=== PATIENT | female | born 2000 | race Caucasian/White ===

== ENCOUNTER 2021-03-15 11:01 | Emergency (ER) | payer OTHER ==
[~2021-03-15] VITALS: Ht 162.6 cm; Wt 95.3 kg
[2021-03-15 11:05] VITALS: BP 114/70
[2021-03-15] MEDS ORDERED: CEFD300C3 PO (11:27)
[2021-03-15] MEDS ORDERED: DIPH25TA53 PO (11:27)
[2021-03-15] MEDS ORDERED: PRED20TA5 PO (11:27)
[2021-03-15] MEDS ORDERED: NAPR-54 PO (11:28)
[2021-03-15 11:33] VITALS: BP 114/70
== END 2021-03-15 11:33 | disposition home or self-care (01) ==
LOC: MED 11:01
DX: J03.90 Acute tonsillitis, unspecified (principal); K11.20 Sialoadenitis, unspecified; Z88.0 Allergy status to penicillin; Z88.2 Allergy status to sulfonamides
CPT/HCPCS: 99283

== ENCOUNTER 2022-02-18 15:13 | Emergency (ER) | payer MEDICAID, OTHER ==
[~2022-02-18] VITALS: Ht 162.6 cm; Wt 95.3 kg
[~2022-02-18 15:13] MED LIST: CEFD300C3 PO; DIPH25TA53 PO; NAPR-54 PO; PRED20TA5 PO
[2022-02-18 15:22] VITALS: BP 120/65
--- NOTE | 2022-02-18 15:32 | NUR ---
21/F C/O BILATERAL EAR PAIN, STATES SHE WAS SEEN FOR LEFT EAR PAIN YESTERDAY AND GIVEN RX OF ABX. STATES TODAY SHE WOKE UP WITH BILATERAL PAIN AND STATING "I CANT HEAR." DENIES FEVERS. PER PATIENT "SHE FEELS A PINCHING IN HER EARS." EARS ARE TENDER TO TOUCH AND LIQUID NOTED IN PATIENT EARS MEDHX: LUPUS ALLERGIES: PENICILLINS, SULFA
--- NOTE | 2022-02-18 15:33 | NUR ---
DR. LOERA BEDSIDE EVALUATING PT
[2022-02-18] MEDS ORDERED: ACET-8386 PO (15:44)
[2022-02-18] MEDS ORDERED: CIPR500T4 PO (15:44)
[2022-02-18] MEDS ORDERED: DEXAMETHASONE 10 MG/ML VIAL IM ONE (15:45)
[2022-02-18 16:01] VITALS: BP 120/65
--- NOTE | 2022-02-18 16:01 | NUR ---
Patient discharged with v/s stable. Written and verbal after care instructions given and explained. Patient verbalized understanding. Ambulatory with steady gait. All questions addressed prior to discharge. Advised to follow up with PMD.
== END 2022-02-18 16:01 | disposition home or self-care (01) ==
LOC: MED 15:13
DX: H60.93 Unspecified otitis externa, bilateral (principal); Z88.0 Allergy status to penicillin; Z79.899 Other long term (current) drug therapy
CPT/HCPCS: 96372; 99283; J1100